=== PATIENT | male | born 1950 | race Two or more races ===

== ENCOUNTER 2020-04-14 12:50 | Emergency (ER) | payer OTHER ==
[~2020-04-14] VITALS: Ht 172.7 cm; Wt 73.0 kg
[2020-04-14] MEDS ORDERED: KETOROLAC 30MG/ML VIAL IV STA (14:01)
[2020-04-14] MEDS ORDERED: ONDANSETRON HCL 4MG/2ML INJ IV STA (14:01)
[2020-04-14] MEDS ORDERED: MAGNESIUM CITRATE 300ML SOLUTION PO ONE (14:15)
[2020-04-14] MEDS ORDERED: LACTULOSE 20G/30ML UDC PO ONE (14:15)
[2020-04-14 15:45] LABS: HEMATOCRIT. 38.2 % (42.0-52.0); HEMOGLOBIN. 12.6 g/dL (14.0-18.0); MEAN CORPUSCULAR HEMOGLOBIN 28.6 pg (28.0-32.0); MEAN CORPUSCULAR VOLUME 86.7 fL (80.0-94.0); MEAN PLATELET VOLUME 8.5 fl (7.4-10.4); PLATELET 297 x1000/uL (130-400); RED CELL DISTRIBUTION WIDTH 17.9 % (11.6-14.6)
[2020-04-14 15:48] VITALS: BP 156/95
[2020-04-14 15:49] LABS: CHLORIDE 94 mEq/L (98-107)
[2020-04-14 15:52] LABS: PROTHROMBIN TIME 10.4 sec (9.6-11.0)
[2020-04-14 16:03] LABS: CLARITY URINE CLEAR (CLEAR); COLOR URINE YELLOW (YELLOW); KETONES URINE NEGATIVE (NEGATIVE); LEUKOCYTE ESTERASE URINE TRACE (NEGATIVE); NITRITE URINE NEGATIVE (NEGATIVE); OCCULT BLOOD URINE 3+ (NEGATIVE); PROTEIN URINE NEGATIVE (NEGATIVE); SPECIFIC GRAVITY URINE 1.013 (1.005-1.030); UROBILINOGEN URINE 0.2 E.U./dL (0.2-1.0)
[2020-04-14 16:37] LABS: PLATELET ESTIMATE NORMAL
[2020-04-17] MEDS ORDERED: OXYC-100 PO (01:39)
[2020-04-17] MEDS ORDERED: MULT-1146 PO (01:39)
[2020-04-18] MEDS ORDERED: HYDR-3281 MT (13:30)
== END 2020-04-14 16:20 | disposition left against medical advice (07) ==
LOC: ER 14:17
DX: K59.00 Constipation, unspecified (principal); N17.9 Acute kidney failure, unspecified; R03.0 Elevated blood-pressure reading, without diagnosis of hypertension
CPT/HCPCS: 36415; 74018; 80053; 81003; 83690; 85025; 85610; 96374; 96375; 99284; J1885; J2405

== ENCOUNTER 2020-06-13 18:46 | Inpatient (IN) | payer OTHER ==
[~2020-06-13] VITALS: Ht 172.7 cm; Wt 68.5 kg
[~2020-06-13 18:46] MED LIST: HYDR-3281 MT; MULT-1146 PO; OXYC-100 PO
[2020-06-13 21:56] LABS: EOSINOPHILS % 2.1 % (0.0-5.0); HEMATOCRIT. 30.5 % (42.0-52.0); HEMOGLOBIN. 9.3 g/dL (14.0-18.0); LYMPHOCYTES % 16.5 % (20.0-50.0); MEAN CORPUSCULAR HEMOGLOBIN 23.6 pg (28.0-32.0); MEAN CORPUSCULAR VOLUME 77.3 fL (80.0-94.0); MEAN PLATELET VOLUME 7.2 fl (7.4-10.4); MONOCYTES % 14.8 % (2.0-8.0); NEUTROPHILS % 65.6 % (40.0-76.0); PLATELET 368 x1000/uL (130-400); RED BLOOD CELL COUNT 3.94 mill/uL (4.7-6.1); RED CELL DISTRIBUTION WIDTH 17.4 % (11.6-14.6)
[2020-06-13 21:57] LABS: CLARITY URINE TURBID (CLEAR); COLOR URINE YELLOW (YELLOW); KETONES URINE TRACE (NEGATIVE); LEUKOCYTE ESTERASE URINE 3+ (NEGATIVE); NITRITE URINE NEGATIVE (NEGATIVE); OCCULT BLOOD URINE 3+ (NEGATIVE); PH URINE 5.5 (4.5-8.0); PROTEIN URINE 3+ (NEGATIVE); SPECIFIC GRAVITY URINE 1.022 (1.005-1.030)
[2020-06-13] MEDS ORDERED: PIPERACILLIN/TAZOBACTAM 3.375GM/50ML PREMIX IV ONE (22:00)
[2020-06-13 22:01] LABS: CHLORIDE 108 mEq/L (98-107)
[2020-06-13 22:03] LABS: INR 1.1; PROTHROMBIN TIME 11.1 sec (9.6-11.0)
[2020-06-13] MEDS ORDERED: PIPERACILLIN/TAZ 3.375G PREMIX 50 ML IV NR (22:15)
[2020-06-13] MEDS ORDERED: ACETAMINOPHEN 325MG TABLET PO PRN (22:45)
[2020-06-13] MEDS ORDERED: DOCUSATE SODIUM 100MG CAPSULE PO PRN (22:45)
[2020-06-13] MEDS ORDERED: MAGNESIUM/ALUMINUM HYDROXIDE/SIMETHICONE 30ML UDC PO PRN (22:45)
[2020-06-13] MEDS ORDERED: CLONIDINE 0.1MG TABLET PO PRN (22:45)
[2020-06-13] MEDS ORDERED: HYDROMORPHONE HCL/PF 2MG/ML CPJ IV PRN (22:45)
[2020-06-13] MEDS ORDERED: ONDANSETRON HCL 4MG/2ML INJ IV PRN (22:45)
[2020-06-13] MEDS: SODIUM CHLORIDE 0.45% 1,000 ML IV SCH (23:03)
[2020-06-13] MEDS: HYDROCODONE/ACETAMINOPHEN 5/325MG TABLET PO PRN (23:22)
[2020-06-14] MEDS ORDERED: IOHEXOL-300 100 ML BOTTLE ONE (00:06)
[2020-06-14] MEDS: HYDROCODONE/ACETAMINOPHEN 5/325MG TABLET PO PRN ×2 (05:39→12:51)
[2020-06-14] MEDS ORDERED: PIPERACILLIN/TAZ 3.375G PREMIX 50 ML IV SCH (06:00)
[2020-06-14 06:53] LABS: HEMATOCRIT. 26.3 % (42.0-52.0); HEMOGLOBIN. 8.2 g/dL (14.0-18.0); MEAN CORPUSCULAR HEMOGLOBIN 24.2 pg (28.0-32.0); MEAN PLATELET VOLUME 7.2 fl (7.4-10.4); PLATELET 318 x1000/uL (130-400); RED BLOOD CELL COUNT 3.41 mill/uL (4.7-6.1); RED CELL DISTRIBUTION WIDTH 17.6 % (11.6-14.6)
[2020-06-14 06:58] LABS: CHLORIDE 109 mEq/L (98-107)
[2020-06-14 08:00] VITALS: BP 116/71
[2020-06-14] MEDS ORDERED: FINASTERIDE 5MG TABLET PO SCH (09:00)
[2020-06-14] MEDS: TAMSULOSIN HCL 0.4MG SR CAPSULE PO SCH (09:30)
[2020-06-14] MEDS: FINASTERIDE 5MG TABLET PO SCH (09:30)
[2020-06-14] MEDS: ENOXAPARIN 40MG/0.4ML SYR SUBCUT SCH (09:30)
[2020-06-14 09:32] LABS: NUCLEATED RED BLOOD CELLS 1 /100 WBC; PLATELET ESTIMATE NORMAL
[2020-06-14 10:33] VITALS: BP 116/71
[2020-06-14] MEDS ORDERED: TAMS-11 MT (10:46)
[2020-06-14] MEDS ORDERED: FINA1TAB18 MT (10:47)
[2020-06-14 12:00] VITALS: BP 112/62
[2020-06-14] MEDS ORDERED: PNEUMOCOCCAL 23-VAL P-SAC VAC 0.5 ML IM ONE (12:15)
[2020-06-14] MEDS: SODIUM CHLORIDE 0.45% 1,000 ML IV SCH (12:51)
[2020-06-14 16:00] VITALS: BP 113/71
[2020-06-14 20:00] VITALS: BP 119/75
[2020-06-15] VITALS: BP 124/76
[2020-06-15] MEDS: HYDROCODONE/ACETAMINOPHEN 5/325MG TABLET PO PRN ×2 (00:56→09:30)
[2020-06-15] MEDS: SODIUM CHLORIDE 0.45% 1,000 ML IV SCH (00:56)
[2020-06-15 04:00] VITALS: BP 104/60
[2020-06-15 08:00] VITALS: BP 134/72
[2020-06-15] MEDS: FINASTERIDE 5MG TABLET PO SCH (09:30)
[2020-06-15] MEDS: TAMSULOSIN HCL 0.4MG SR CAPSULE PO SCH (09:30)
[2020-06-15] MEDS: ENOXAPARIN 40MG/0.4ML SYR SUBCUT SCH (09:31)
[2020-06-15 10:45] VITALS: BP 102/72
[2020-06-15] MEDS ORDERED: LEVOFLOXACIN 500MG PREMIX 100 ML IV NR (11:00)
[2020-06-15 12:00] VITALS: BP 102/72
== END 2020-06-15 15:30 | disposition home or self-care (01) | DRG 689 ==
LOC: ER 19:16 → MICUSO 21:58 → 6EST 06-14 07:26
PROVIDERS: ADMIT Hospitalist; ATTEND Hospitalist
DX: N39.0 Urinary tract infection, site not specified (principal); E43 Unspecified severe protein-calorie malnutrition; N40.1 Benign prostatic hyperplasia with lower urinary tract symptoms; N13.9 Obstructive and reflux uropathy, unspecified; D63.8 Anemia in other chronic diseases classified elsewhere; J44.9 Chronic obstructive pulmonary disease, unspecified; N18.9 Chronic kidney disease, unspecified; Z68.23 Body mass index [BMI] 23.0-23.9, adult
CPT/HCPCS: 36415; 74177; 80053; 81003; 83605; 85025; 90732; 93005; 93970; 99285; J1650; J1956; J2543; Q9967